=== PATIENT | male | born 1950 | race Caucasian/White ===

== ENCOUNTER 2017-02-04 16:00 | Outpatient (CLI) | payer OTHER ==
[2017-02-04 15:10] LABS: ALBUMIN/GLOBULIN RATIO 1.5 (1.0-2.2); BILIRUBIN,TOTAL 0.8 mg/dL (0.2-1.0); CALCIUM 9.3 mg/dL (8.5-10.3); CREATININE 1.1 mg/dL (0.6-1.2); POTASSIUM 3.8 mmol/L (3.5-5.0); TOTAL PROTEIN 7.4 g/dL (6.7-8.2)
== END 2017-02-04 23:59 | disposition home or self-care (01) ==
LOC: LAB 16:00
PROVIDERS: ATTEND Physician Assistant Medical
DX: Z51.81 Encounter for therapeutic drug level monitoring (principal)
CPT/HCPCS: 36415; 80053

== ENCOUNTER 2017-02-10 13:44 | Outpatient (CLI) | payer OTHER ==
[2017-02-10] MEDS ORDERED: GADOBUTROL 7.5 MMOL/7.5 ML VIAL IVP ONE (14:36)
--- NOTE | 2017-02-10 17:21 | MRI Report ---
MRI BRAIN WITHOUT AND WITH CONTRAST CLINICAL HISTORY: 66-year-old male with chronic headache. History of pituitary adenoma. COMPARISON: 10/13/2015. TECHNIQUE: Imaging of the brain and pituitary has been performed. The following sequences were obtained: 1. T1 sagittal and fat-saturated T2 coronal. 2. Axial T1 3-D MP RAGE, FLAIR, T2* and DWI. 3. Thin slice, T1 and T2 coronals (sella). 4. 7.5 mL IV Gadavist. Dynamic pituitary imaging was performed in the coronal plane. In addition, thi n slice static postcontrast sagittal and coronal T1 fat saturated sequences have been obtained throug h the pituitary and sella. A routine T1 3-D axial sequence was performed through the brain. FINDINGS: Pituitary/sella: The sella is not enlarged. A T1 hyperintense neurohypophysis is identified in the posterior aspect of the sella. The pituitary gland has a normal size and configuration. On postcontrast sequences, there is a tiny (roughly 1 mm diameter) focus of delayed or absent enhance ment in upper aspects of the adenohypophysis, just below the insertion of the infundibulum and slight ly to the right of midline (see image #6 of series 1201). This is unchanged. In addition, best demons trated on the sagittal postcontrast sequence (see image 6 of series 1301). There is a small focus of relative hypoenhancement in the inferior aspect of the adenohypophysis on the left, measuring roughly 1.8 mm in maximal height and roughly 1.2 mm in AP dimension, essentially unchanged. No other discret e intrapituitary lesion is demonstrated. The pituitary infundibulum remains midline. No suprasellar m ass lesion is demonstrated. The optic chiasm is normal and noncompressed. The cavernous sinuses and o ther parasellar structures appear normal. Brain: Ventricular size is normal. A tiny T2 hyperintensity is again demonstrated in white matter of the rig ht frontal lobe. Signal intensity of cortex and white matter is otherwise unremarkable. Flow voids are demonstrated in the main intracranial arteries. No abnormal diffusion restriction is d emonstrated. No evidence of acute or chronic hemorrhage on T2* GRE sequence. No enhancing intra- or e xtra-axial mass lesion is demonstrated on postcontrast sequences. Noted is normal intravascular contr ast enhancement in the dural venous sinuses and deep venous structures. Limited assessment of the orbits reveals no gross pathology. There is mild mucosal thickening scatter ed throughout the ethmoid air cells. The paranasal sinuses are otherwise essentially clear. No signif icant mastoid or middle ear effusion is demonstrated. IMPRESSION: 1. Two tiny foci of delayed or reduced enhancement are identified in the anterior lobe of the pituita ry gland as described. The findings are identical to previous study 10/13/2015. Either of these lesio ns could represent a microadenoma. No interval growth. 2. Otherwise, unremarkable MRI examination of the pituitary gland and parasellar region. 3. Unremarkable MRI examination of the brain. In particular, no evidence of infarction, hemorrhage, s pace-occupying mass lesion or other acute intracranial abnormality. Referring Provider Line: [phone] SITE ID: [id number]
== END 2017-02-10 23:59 | disposition home or self-care (01) ==
LOC: DI 13:44
PROVIDERS: ATTEND Physician Assistant Medical
DX: R51 Headache (principal); R90.89 Other abnormal findings on diagnostic imaging of central nervous system
CPT/HCPCS: 70553; A9585

== ENCOUNTER 2017-12-11 09:39 | Outpatient (CLI) | payer OTHER, MEDICARE | END 2017-12-11 09:40 | disposition home or self-care (01) | LOC: SC 09:39 | PROVIDERS: ATTEND Nurse Practitioner Family | DX: G47.33 Obstructive sleep apnea (adult) (pediatric) (principal) | CPT/HCPCS: 99212; 99214 ==

== ENCOUNTER 2018-04-09 14:00 | Outpatient (CLI) | payer OTHER, MEDICARE ==
[2018-04-09 19:56] LABS: H. PYLORIS ANTIGEN STL NEGATIVE (Negative)
== END 2018-04-09 14:01 | disposition home or self-care (01) ==
LOC: LAB.WCP 14:00
PROVIDERS: ATTEND Family Medicine
DX: K29.70 Gastritis, unspecified, without bleeding (principal); B96.81 Helicobacter pylori [H. pylori] as the cause of diseases classified elsewhere
CPT/HCPCS: 87338

== ENCOUNTER 2019-08-23 09:47 | Outpatient (CLI) | payer OTHER, MEDICARE ==
[2019-08-23 10:26] VITALS: BP 110/70
--- NOTE | 2019-08-23 10:26 | SLEEP CARE CONSULTATION ---
Information from patient questionnaire entered by Misty Koch. I have reviewed and concur with the information entered by Misty Koch. This document represents the service I personally performed and the decisions made by me, Tammie Davis, RN, MSN, [employer]. History of Present Illness Previous diagnosis: Very Severe, Obstructive Sleep Apnea-Hypopnea Syndrome AHI: 71 Reason for follow up: annual Equipment type: CPAP Equipment obtained from: [facility] (having difficulty getting supplies.) Mask style: Nasal pillows Backup mask available: No (Keep current mask as spare when replaced. ) Last cushion change: a month ago Prior sleep studies: Yes Year and Where: 2012 [facility] CPAP Compliance Data - Data Reviewed with Patient Average duration of nightly device use: 6h 35m Compliance rate %: 97.8 Current pressure setting (cmH2O): 7 Humidity settin Heated hose settin Average residual AHI: 2.6 Average large leak: 1s Subjective Patient concerns: reports: aerophagia (Feels bloated all time for past for the past month. no aerophagia symptoms. ), dry mouth, nose, throat (weekly mild dry throat for past 3-4 months ), other (reports short nights of sleep due to difficulty returning to sleep in middle of night. This has been occurring for about 3-4 months and 1-2 weeks a week. Patient unaware of cause. ). denies: mask discomfort, air blowing in eyes, mask leak noise, condensation in mask/hose, nasal congestion, epistaxis Observed to snore while using device: No Current pressure setting perceived as: comfortable On therapy, patient: reports: sleeping better, awakening more refreshed, being more awake and alert during the day, more rested overall. denies: drowsiness while driving Initial [place] Sleepiness Scale score: 10 Current [place] Sleepiness Scale score: 4 Allergies and Home Medications Known drug allergies: Yes Home medication list reviewed: Yes Allergy and home medication list: Medication Name (generic/name brand) Strength & Dosage Zetia 10mg daily Aspirin 81mg tab one daily Review of Systems Review of systems same as previous: Yes Physical Exam Blood Pressure: 110/70 Cuff size: regular Heart Rate: 73 O2 Saturation: 97 Height: 5 ft 6 in Weight: 156 lb 6.4 oz Body Mass Index: 25.2 BMI Classification: Overweight Impression and Plan 1. Obstructive Sleep Apnea-Hypopnea Syndrome, very severe, with good treatment compliance and good apnea control. On CPAP therapy, the patient has better sleep quality and is more rested overall. For his supply concerns, I will have my field marketing coordinator clarify if due to his insurance or need for updated prescription. Since his primary insurance is [employer], he may need to go to another DME. If so, a DWO prescription will be made. To reduce throat dryness, I showed him how to increase humidity with sample CPAP. Rationale discussed for future changing of both heated hose and humidity. Printed instruction sheet for CPAP site given. For his weekly insomnia for unknown reason, I will have him complete a 2 week sleep diary for further evaluation at follow up. Patient's apnea severity and rationale for treatment to reduce apnea, improve sleep quality and reduce cardiovascular and cerebrovascular events was reviewed. * Continue CPAP pressure at 7 cmH2O * Adjust humidity * complete sleep diary * Notify me if snoring with mask or feeling that the pressure is too much or too little * Check reason for inability to obtain supplies. * Return for follow up in 2 months , or sooner if concerns arise * * Addendum: at check out, it was discoverd that patient insurance is a PPO and patient can continue with current DME. A prescription to update supplies will be faxed to start process. I spent 100% of this 30 minute visit face to face with the patient with greater than 50% of this was spent time counseling the patient and coordination of care.
== END 2019-08-23 09:48 | disposition home or self-care (01) ==
LOC: SC 09:47
PROVIDERS: ATTEND Nurse Practitioner Family
DX: G47.33 Obstructive sleep apnea (adult) (pediatric) (principal)
CPT/HCPCS: 99212; 99214

== ENCOUNTER 2019-09-24 15:09 | Outpatient (CLI) | payer OTHER, MEDICARE ==
[2019-09-24] MEDS ORDERED: IOVERSOL 320 50 ML VIAL ONE (15:14)
[2019-09-24] MEDS ORDERED: IOVERSOL 320 100 ML VIAL IVP ONE ×2 (15:14→16:33)
[2019-09-24] MEDS ORDERED: IOVERSOL 320 50 ML VIAL PO ONE (16:33)
--- NOTE | 2019-09-25 15:29 | CT Report ---
Reason: ABD PAIN Procedure Date: 09/24/2019 Accession Number: [id number] / [id number] Procedure: CT - Abdomen/Pelvis W CPT Code: Final Report FULL RESULT: EXAM: CT ABDOMEN AND PELVIS EXAM DATE: 09/24/2019 04:31 PM. CLINICAL HISTORY: Abdominal pain. COMPARISONS: None. TECHNIQUE: Routine helical CT imaging was performed through the abdomen and pelvis. IV contrast: Optiray 320 100 mL. Enteric contrast: No. Reconstructions: Coronal and sagittal. In accordance with CT protocol optimization, one or more of the following dose reduction techniques were utilized for this exam: automated exposure control, adjustment of mA and/or KV based on patient size, or use of iterative reconstructive technique. FINDINGS: Lung Bases: Unremarkable. Liver: Normal. No masses. Gallbladder/Bile Ducts: Unremarkable. Spleen: Normal. Pancreas: Normal. Adrenal Glands: Normal. Kidneys: Normal. No masses or hydronephrosis. Peritoneal Cavity/Bowel: Normal. No free fluid, free air or adenopathy. No masses or acute inflammatory process. The appendix is well visualized and normal. Pelvic Organs: Normal. The bladder and visualized pelvic organs are within normal limits. Vasculature: No aneurysms or other significant abnormality. Bones: No significant abnormality. Other: None. IMPRESSION: Normal abdomen and pelvis CT. RADIA
== END 2019-09-24 15:10 | disposition home or self-care (01) ==
LOC: DI 15:09
PROVIDERS: ATTEND Family Medicine
DX: R10.9 Unspecified abdominal pain (principal)
CPT/HCPCS: 74177; Q9967

== ENCOUNTER 2019-10-25 15:09 | Outpatient (CLI) | payer OTHER, MEDICARE ==
[2019-10-25 16:14] VITALS: BP 112/64
--- NOTE | 2019-10-25 16:14 | SLEEP CARE CONSULTATION ---
Information from patient questionnaire entered by Misty Koch. I have reviewed and concur with the information entered by Misty Koch. This document represents the service I personally performed and the decisions made by me, Tammie Davis, RN, MSN, WOOL H[employer]. History of Present Illness Previous diagnosis: Very Severe, Obstructive Sleep Apnea-Hypopnea Syndrome AHI: 71.0 Reason for follow up: other (2 month with sleep diary) Equipment type: CPAP Equipment obtained from: [facility] (he continues to have difficulty getting supplies and now ready to transfer) Mask style: Nasal pillows Backup mask available: Yes (old mask ) Last cushion change: a couple of months ago Prior sleep studies: Yes HPI additional information: For his insomnia, he was to complete a sleep diary but forgot it at home. He feels his insomnia is less from 2 times a week to 1 time a week. His sleep schedule is bedtime 9:30-10pm - wake time about 4 am. He feels rested. He did not note any cause of wake up except bathroom use. He is now able to able to go back to sleep easier. He does not know why. CPAP Compliance Data - Data Reviewed with Patient Average duration of nightly device use: 6h 10m Compliance rate %: 63.3 Current pressure setting (cmH2O): 7 Humidity settin Heated hose settin Average residual AHI: 2 Average large leak: 2m 17s Subjective Missed days of use due to: reports: illness (had the flu and unable to use CPAP) Patient concerns: reports: dry mouth, nose, throat (occasional dry throat - none in past week ). denies: aerophagia (patient does not wake to bloating, he feels bloated all the time and has an appointment tomorrow with GI ), mask discomfort, air blowing in eyes, mask leak noise, condensation in mask/hose, nasal congestion, epistaxis Observed to snore while using device: No Current pressure setting perceived as: comfortable On therapy, patient: reports: sleeping better, awakening more refreshed, being more awake and alert during the day, more rested overall. denies: drowsiness while driving Initial [place] Sleepiness Scale score: 10 Current [place] Sleepiness Scale score: 9 Allergies and Home Medications Known drug allergies: Yes (see list ) Home medication list reviewed: Yes (added ) Allergy and home medication list: Sepia one tablet at night - replaces pravastatin prednisone short course 12 days of reducing dosage Review of Systems Review of systems same as previous: No (right sciatica - pain reduction with prednisone) Physical Exam Blood Pressure: 112/64 Cuff size: long Heart Rate: 84 O2 Saturation: 98 Height: 5 ft 6 in Weight: 158 lb 6.4 oz Weight change since last visit: gained 2 pounds Body Mass Index: 25.5 BMI Classification: Overweight Impression and Plan 1. Obstructive Sleep Apnea-Hypopnea Syndrome, very severe, with fair treatment compliance and good apnea control. Compliance fell while ill. He is now using CPAP well. On CPAP therapy, the patient has better sleep quality and is more rested overall. For occasional dry throat, he was advised to raise the humidity as instructed last visit. He can also reduce heated hose if no condensation. He reports that he generally does not like using CPAP but satisfied with benefit and plans on continuing use. For patient supply concerns. Patient was notified that another DME can be used. I will have my weatherization coordinator inform of DME options. A DWO prescription will then be made. Patient advised to contact this office if further supply problems. If insomnia gets worse, he is to contact this office for appointment and new sleep diaries. He is satisfied with reduced occurrence for now. Patient's apnea severity and rationale for treatment to re duce apnea, improve sleep quality and reduce cardiovascular and cerebrovascular events was reviewed. * Continue CPAP pressure at 7 cmH2O * Transfer to new DME * Adjust humidity * Notify me if snoring with mask or feeling that the pressure is too much or too little * Attempt to lose some some weight * Call this office if any problems using CPAP * Return for follow up in annual, or sooner if concerns arise Time Spent with Patient (minutes): 27 I spent 100% of this visit face to face with the patient with greater than 50% of this was spent time counseling the patient and coordination of care.
== END 2019-10-25 15:10 | disposition home or self-care (01) ==
LOC: SC 15:09
PROVIDERS: ATTEND Nurse Practitioner Family
DX: G47.33 Obstructive sleep apnea (adult) (pediatric) (principal)
CPT/HCPCS: 99212; 99214

== ENCOUNTER 2019-10-30 09:22 | Outpatient (CLI) | payer OTHER, MEDICARE ==
--- NOTE | 2019-10-31 09:10 | MRI Report ---
Reason: SCIATICA, RADICULOPATHY Procedure Date: 10/30/2019 Accession Number: [id number] / [id number] Procedure: MRI - Lumbar Spine W/O CPT Code: Final Report FULL RESULT: EXAM: MRI LUMBAR SPINE WITHOUT CONTRAST EXAM DATE: 10/30/2019 10:03 AM. CLINICAL HISTORY: SCIATICA, RADICULOPATHY. COMPARISON: LUMBAR SPINE COMPLETE 03/12/2013 1:42 PM. TECHNIQUE: Multiplanar, multisequence T1-weighted and fluid-sensitive sequences of the lumbar spine from T12 to S1 without contrast. Other: None. FINDINGS: Lumbar alignment is anatomic. Vertebral body height is preserved. Marrow signal is normal. No bony lesion. No fracture. The conus is normal in contour with the tip at the level of the L1 vertebra. Axial images demonstrate the following: L1-L2: Mild bilateral facet hypertrophy. Normal intervertebral disk. No central or foraminal stenosis. L2-L3: Mild bilateral facet hypertrophy. Trace disk bulge. No central or foraminal stenosis. L3-L4: Mild bilateral facet hypertrophy. Trace disk bulge. No central or foraminal stenosis. L4-L5: Mild bilateral facet hypertrophy. Mild loss of disk height with mild diffuse disk bulge/osteophyte. Findings lead to mild bilateral lateral recess stenosis with potential mild impingement on both L5 nerves and minimal right foraminal stenosis. No significant left foraminal stenosis. L5-S1: Mild bilateral facet hypertrophy. Normal intervertebral disk. No central or foraminal stenosis. IMPRESSION: 1. Mild diffuse lumbar degenerative facet arthropathy and mild lower lumbar degenerative disk disease. This is most pronounced at L4-L5 where the facet arthropathy and mild disk bulge/osteophyte lead to mild bilateral lateral recess stenosis and minimal right foraminal stenosis. No further central or foraminal stenosis at any other lumbar level. Comment: The following findings are so common in adults without low back pain that while we report their presence, they must be interpreted with caution and in the context of the clinical situation. (Reference Laura et al, Spine 2001) Prevalence of findings in patients without low back pain: Disk degeneration (any evidence): 92% Disk desiccation/T2 signal loss: 83% Disk height loss: 56% Disk bulge: 64% Disk protrusion: 32% Annular tear/high intensity zone: 38% RADIA
== END 2019-10-30 09:23 | disposition home or self-care (01) ==
LOC: DI 09:22
PROVIDERS: ATTEND Nurse Practitioner Family
DX: M47.816 Spondylosis without myelopathy or radiculopathy, lumbar region (principal); M51.36 Other intervertebral disc degeneration, lumbar region; M47.817 Spondylosis without myelopathy or radiculopathy, lumbosacral region; M48.061 Spinal stenosis, lumbar region without neurogenic claudication
CPT/HCPCS: 72148

== ENCOUNTER 2020-01-18 10:20 | Outpatient (CLI) | payer MEDICARE, OTHER ==
--- NOTE | 2020-01-18 11:33 | SLEEP CARE CONSULTATION ---
Information from patient questionnaire entered by Misty Koch. I have reviewed and concur with the information entered by Misty Koch. This document represents the service I personally performed and the decisions made by me, Cari Pedro MD, [facility]. History of Present Illness Service Date and Time: 01/18/2020 1020 Previous diagnosis: Very Severe, Obstructive Sleep Apnea-Hypopnea Syndrome AHI: 71.0 Reason for follow up: first compliance Equipment type: CPAP Equipment obtained from: [facility] additional information: consented to this telephone visit. The patient also agrees to having his insurance billed. HPI: Mr. Downing was called today to follow up on the nasal CPAP therapy. He was diagnosed to have very severe obstructive sleep apnea-hypopnea syndrome. The patient wears nasal pillows. He reports using the device nightly and all through the night. The compliance report shows usage in 30 nights out of the past 30 nights, averaging 6.5 hours a night. The > 4 hour compliance rate for the past 30 days is 100%. He complained of some confusion with him switching from [employer] to Medicare but no particular problem with the device such as soreness on the face, dry nose, epistaxis, nasal congestion or headache. He thinks that the pressure of 7 cmH2O is comfortable. On the CPAP therapy he notices improvement in his sleep quality, and that he wakes up feeling fresher in the morning and more awake/alert during the day. The average residual AHI is 1.8; and average time in large leak per day is 0 seconds. CPAP Compliance Data - Data Reviewed with Patient Average duration of nightly device use: 6H 30M Compliance rate %: 100 Current pressure setting (cmH2O): 7 Humidity settin Heated hose settin Average residual AHI: 1.8 Average large leak: 0S Subjective Initial [place] Sleepiness Scale score: 10 Allergies and Home Medications Drug allergies reviewed: Yes Home medication list reviewed: Yes Review of Systems Review of systems same as previous: Yes Physical Exam Height: 5 ft 6 in Impression and Plan IMPRESSION: 1. Obstructive Sleep Apnea-Hypopnea Syndrome, severe (AHI was 71), with the patient doing well on nasal CPAP therapy. He has excellent compliance and sign ificant clinical improvement. The current pressure appears effective and comfortable. His nasal pillows fit well. Overall, he is very satisfied with treatment and plans to continue with it long-term. No adjustment is necessary today. PLAN: 1. Continue with autoCPAP set at 7 cmH2O. 2. Consider switching durable medical supplier if he cannot resolve to payment issue with [employer]. 3. A prescription made for supplies in case he needs a new one for Medicare. 4. Return in one year for follow up or earlier if there is any problem with the treatment. Visit Type: Telehealth Phone Patient Location: Home Location of Provider: Home Patient agrees and consents to this telehealth visit type: Yes Patient agrees to have their insurance billed: Yes Time Spent with Patient (minutes): 10 Provider Statement: I spent 100% of the Telehealth Phone Call with the patient with greater than 50% spent counseling the patient and coordination of care.
== END 2020-01-18 10:21 | disposition home or self-care (01) ==
LOC: SC 10:20
PROVIDERS: ATTEND Internal Medicine Pulmonary Disease
DX: G47.33 Obstructive sleep apnea (adult) (pediatric) (principal)

== ENCOUNTER 2020-08-23 07:46 | Outpatient (CLI) | payer MEDICARE, OTHER ==
--- NOTE | 2020-08-23 08:42 | XRAY Report ---
PROCEDURE: Shoulder 2 View RT INDICATIONS: RIGHT SHOULDER PAIN TECHNIQUE: 2 views of the shoulder were acquired. COMPARISON: None. FINDINGS: Bones: No fractures or dislocations. Moderate acromioclavicular and glenohumeral joint space narrow ing with features of osteoarthritis. Suspicious bony lesions. Visualized ribs appear intact. Soft tissues: No suspicious soft tissue calcifications. IMPRESSION: Moderate glenohumeral and acromioclavicular osteoarthritis. Reviewed by: Isaiah Martinez MD on 08/23/2020 8:41 AM PST Approved by: Isaiah Martinez MD on 08/23/2020 8:41 AM PST Station ID: [id number]
== END 2020-08-23 23:59 | disposition home or self-care (01) ==
LOC: DI.WCP 07:46
PROVIDERS: ATTEND Family Medicine
DX: M19.011 Primary osteoarthritis, right shoulder (principal)

== ENCOUNTER 2021-01-05 08:11 | Outpatient (CLI) | payer MEDICARE, OTHER ==
--- NOTE | 2021-01-05 08:52 | SLEEP CARE CONSULTATION ---
Information from patient questionnaire entered by Mirian Navarro. I have reviewed and concur with the information entered by Mirian Navarro. This document represents the service I personally performed and the decisions made by , Mary Bearden ARNP. History of Present Illness Service Date and Time: 01/05/2021 0811 Previous diagnosis: Very Severe, Obstructive Sleep Apnea-Hypopnea Syndrome AHI: 71.0 (in 2012) Reason for follow up: annual (last seen 12/2019) Equipment type: CPAP Equipment obtained from: [facility] (getting supplies as needed) Mask style: Nasal pillows Backup mask available: No (will keep old mask when replaced) Last cushion change: 2 days ago Prior sleep studies: Yes Year and Where: 2012 - [facility] Type of Sleep Study: Polysomnography HPI additional information: CECILIA GUZMAN was diagnosed to have very severe, AHI 71.0, obstructive sleep apnea-hypopnea syndrome and returned today for CPAP therapy annual follow-up. CPAP Compliance Data - Data Reviewed with Patient Average duration of nightly device use: 5 hr 36 min Compliance rate %: 89.4 (180 days) Current pressure setting (cmH2O): 7 Humidity settin Heated hose settin Average residual AHI: 1.4 Average large leak: 4 sec Subjective Missed days of use due to: reports: illness Patient concerns: reports: mask discomfort (from turning on side), air blowing in eyes (from turning on side), mask leak noise (from turning on side), nasal congestion (little next morning), dry mouth, nose, throat (mouth and throat). denies: condensation in mask/hose Observed to snore while using device: No Current pressure setting perceived as: comfortable On therapy, patient: reports: sleeping better, awakening more refreshed, being more awake and alert during the day, more rested overall. denies: drowsiness while driving Initial [place] Sleepiness Scale score: 10 (in 2013) Current [place] Sleepiness Scale score: 13 Allergies and Home Medications Home medication list reviewed: Yes (Zepia for cholesterol) Review of Systems Review of systems same as previous: Yes (no changes) Physical Exam Heart Rate: 74 O2 Saturation: 97 Height: 5 ft 6 in Weight: 159 lb Body Mass Index: 25.7 BMI Classification: Overweight Impression and Plan 1. Obstructive Sleep Apnea-Hypopnea Syndrome, very severe, with good treatment compliance and good apnea control. On CPAP therapy, the patient has better sleep quality and is more rested overall. He has some nasal congestion in the morning and feels like his mouth and throat are dry. Oral dryness can be reduced by adjusting humidity setting higher or heated hose lower or by adjusting both settings. Verbal instructions given on how to change humidity and heated hose settings with rationale explaining why to change. He gets mask leaks and air in eyes when turning on his side. Mask leaks predominately from when patient sleeps on their side can be reduced by using a CPAP pillow. A CPAP pillow sample was shown. This and other styles can be purchased online. Patient's apnea severity and rationale for treatment to reduce apnea, improve sleep quality and reduce cardiovascular and cerebrovascular events was reviewed. Patient requesting a letter stating he probably had sleep apnea last 5 years while in service, even though he did not get evaluated at that time (for disability). I advised him that I will have to check and discuss with senior medical billing specialist to see if we can help him with this concern. We will get back with him once it is determined what can be done. Patient voiced understanding. * Continue autoCPAP pressure at 7 cmH2O * Notify me if snoring with mask or feeling that the pressure is too much or too little * Attempt to lose weight * Call this office if any problems using CPAP * Return for follow up in 1 year, or sooner if concerns arise Counseling Topics: Spare mask, Weight loss health impact Visit Type: In Office Time Spent with Patient (minutes): 20 Provider Statement: I spent 100% of the Face to Face Visit with the patient with greater than 50% spent counseling the patient and coordination of care.
== END 2021-01-05 08:12 | disposition home or self-care (01) ==
LOC: SC 08:11
PROVIDERS: ATTEND Nurse Practitioner Family
DX: G47.33 Obstructive sleep apnea (adult) (pediatric) (principal); E66.3 Overweight; Z68.25 Body mass index [BMI] 25.0-25.9, adult
CPT/HCPCS: 99213; G0463; 99212

== ENCOUNTER 2021-11-24 09:02 | Outpatient (CLI) | payer MEDICARE, OTHER ==
[2021-11-24 14:23] LABS: ALBUMIN 4.5 g/dL (3.2-5.5); ALBUMIN/GLOBULIN RATIO 1.4 (1.0-2.2); ALKALINE PHOSPHATASE 69 IU/L (42-121); ALT ALANINE AMINOTRANSFERASE 44 IU/L (10-60); AST ASPARTATE AMINOTRANSFERASE 27 IU/L (10-42); BILIRUBIN,TOTAL 1.5 mg/dL (0.2-1.0); BUN - BLOOD UREA NITROGEN 23 mg/dL (6-20); CALCIUM 9.6 mg/dL (8.5-10.3); CARBON DIOXIDE - CO2 28 mmol/L (21-32); CHLORIDE 102 mmol/L (101-111); CHOL/HDL RATIO 4.5 (<5.0); CHOLESTEROL 246 mg/dL; GFR - MDRD 74 (>89); GLUCOSE 96 mg/dL (70-100); HDL CHOLESTEROL 55 mg/dL; LDL CHOLESTEROL,CALCULATED 152 mg/dL; LDL/HDL RATIO 2.8 (<3.6); POTASSIUM 4.1 mmol/L (3.5-5.0); SODIUM 139 mmol/L (135-145); TOTAL PROTEIN 7.7 g/dL (6.7-8.2); TRIGLYCERIDES 193 mg/dL; VLDL CHOLESTEROL 39 mg/dL
== END 2021-11-24 09:03 | disposition home or self-care (01) ==
LOC: LAB.N 09:02
PROVIDERS: ATTEND Family Medicine
DX: E78.5 Hyperlipidemia, unspecified (principal)
CPT/HCPCS: 36415; 80053; 80061; 83721

== ENCOUNTER 2021-12-14 06:53 | Outpatient (CLI) | payer MEDICARE, OTHER ==
--- NOTE | 2021-12-14 10:52 | Ultrasound Report ---
PROCEDURE: Abdomen Complete INDICATIONS: HYPERBILIRUBINEMIA, ABD BLOATING TECHNIQUE: Real-time scanning was performed of the abdominal and retroperitoneal organs, with image documentatio n. COMPARISON: Reference is made to CT abdomen dated September 24, 2019 TECHNIQUE: Sonographic evaluation of the abdomen was performed. FINDINGS: AORTA: The visualized abdominal aorta is normal. IVC: The visualized IVC is normal. LIVER: The liver is normal in size and contour. Hypoechoic lesion in the left hepatic lobe, measur ing up to 12 mm, most consistent with a cyst. Increased echogenicity, suggesting hepatic steatosis. T he portal vein is patent. PANCREAS: The visualized portions of the pancreas are normal. Gallbladder and biliary tree: No gallbladder wall thickening or pericholecystic fluid. 8.6 mm shado wing gallstone is seen in the neck, which is mobile. Foci ringdown artifact, compatible with adenomyo matosis. RIGHT KIDNEY: Normal in appearance with no hydronephrosis. Measuring 11.5 cm in length. The renal c ortex thickness measures 1.5 cm. LEFT KIDNEY: Normal in appearance with no hydronephrosis. Measuring 11.2 cm in length. The renal co rtex thickness measures 1.7 cm. Spleen: Normal contour, measuring 8.7 cm. No evidence for ascites. IMPRESSION: 1.No significant abnormality. 2.Cholelithiasis with adenomyomatosis. Reviewed by: Nadeem Foster MD on 12/14/2021 10:50 AM PDT Approved by: Nadeem Foster MD on 12/14/2021 10:50 AM PDT Station ID: [id number]
== END 2021-12-14 06:54 | disposition home or self-care (01) ==
LOC: DI 06:53
PROVIDERS: ATTEND Family Medicine
DX: E80.6 Other disorders of bilirubin metabolism (principal); R14.0 Abdominal distension (gaseous)

== ENCOUNTER 2023-01-01 08:23 | Outpatient (CLI) | payer MEDICARE, OTHER ==
[2023-01-01 09:05] VITALS: BP 110/76
--- NOTE | 2023-01-01 09:05 | SLEEP CARE CONSULTATION ---
Information from patient questionnaire entered by Maddison Hutchison. I have reviewed and concur with the information entered by Maddison Hutchison. This document represents the service I personally performed and the decisions made by me, Mary Bearden ARNP. History of Present Illness Service Date and Time: 01/01/2023 08 Previous diagnosis: Very Severe, Obstructive Sleep Apnea-Hypopnea Syndrome AHI: 71.0 (in 2012) Reason for follow up: annual (LAST SEEN 12/2020) Equipment type: CPAP (CHILD Dreamstation, recertified; NEED SD CARD FOR DOWNLOAD AND RESSURE CHANGES) Equipment obtained from: [employer] (getting supplies as needed) Mask style: Nasal pillows Mask brand: Respironics (Dreamwear) Backup mask available: Yes (old mask) Last cushion change: 1 month [facility]: Yes [facility] Type of Sleep Study: Polysomnography HPI additional information: CECILIA GUZMAN was diagnosed to have very severe, AHI 71.0, obstructive sleep apnea-hypopnea syndrome and returned today for CPAP therapy annual follow-up. Sleep Study - Results Type of Sleep Study: Polysomnography Prior sleep studies: Yes Year and Where: 2012 - [facility] CPAP Compliance Data - Data Reviewed with Patient Average duration of nightly device use: 0 Compliance rate %: 0 (not using due to recall) Current pressure setting (cmH2O): 7 Compliance data discussion: He has a Dreamstation that was just received about a month ago from [employer]. He has not been using his CPAP since 2020 because of the recall on that device. He felt the pressure was not right on his new device. Subjective Missed days of use due to: reports: other (recall) Patient concerns: reports: mask discomfort, other (air flow noise of machine). denies: aerophagia, air blowing in eyes, mask leak noise, condensation in mask/hose, nasal congestion, dry mouth, nose, throat, epistaxis Observed to snore while using device: No Current pressure setting perceived as: too low (on new device) On therapy, patient: reports: sleeping better, awakening more refreshed, being more awake and alert during the day, more rested overall. denies: drowsiness while driving Initial [place] Sleepiness Scale score: 10 (in 2012) Current [place] Sleepiness Scale score: 10 (01/01/23) Allergies and Home Medications Known drug allergies: Yes (as listed) Drug allergies reviewed: Yes Home medication list reviewed: Yes (Zetia, Repatha, for cholesterol) Allergy and home medication list: Allergies atorvastatin calcium * [From Lipitor] Allergy (Verified 12/31/22 09:49) Dizziness choline fenofibrate * [From Trilipix] Adverse Reaction (Verified 12/31/22 09:49) Rash Review of Systems Review of systems same as previous: Yes (no changes) Physical Exam Vital signs obtained and entered by: MADDISON Cline MA Blood Pressure: 110/76 (LEFT ARM) Cuff size: regular Heart Rate: 75 O2 Saturation: 96 Height: 5 ft 6 in Weight: 160 lb 3.2 oz Body Mass Index: 25.8 BMI Classification: Overweight Impression and Plan 1. Obstructive Sleep Apnea-Hypopnea Syndrome, very severe, with poor treatment compliance because of recall on his device and good apnea control when he used his CPAP. Patient received a replacement for his old DreamStation. It is a DreamStation. He states he tried it but the pressure was too low. I reviewed the settings on his machine and it has not updated to his last known pressure setting. I adjusted it to reflect the pressure he used to use with good control of his AHI at 7 cmH2O. I also adjusted the ramp starting pressure to 5 cmH2O as he used to have on his last device. I will have him follow-up with us in about 1 to 2 months to recheck compliance and use of his device. Patient's apnea severity and rationale for treatment to reduce apnea, improve sleep quality and reduce cardiovascular and cerebrovascular events was reviewed. 2. Overweight, unspecified. Currently patients BMI is 25.8. Obesity increases the risk of apnea, CPAP pressure requirements and overall health risks especially cardiovascular and diabetes. Thus, patient is advised to lose weight. * Continue CPAP pressure at 7 cmH2O * Update supplies * Notify me if snoring with mask or feeling that the pressure is too much or too little * Attempt to lose weight * Call this office if any problems using CPAP * Return for follow up in 1-2 months, or sooner if concerns arise Counseling Topics: Spare mask, Weight loss health impact Visit Type: In Office Time Spent with Patient (minutes): 21 Provider Statement: I spent 100% of the Face to Face Visit with the patient with greater than 50% spent counseling the patient and coordination of care.
== END 2023-01-01 08:24 | disposition home or self-care (01) ==
LOC: SC 08:23
PROVIDERS: ATTEND Nurse Practitioner Family
DX: G47.33 Obstructive sleep apnea (adult) (pediatric) (principal); E66.3 Overweight; Z68.25 Body mass index [BMI] 25.0-25.9, adult
CPT/HCPCS: 99213; G0463; 99212

== ENCOUNTER 2023-02-25 08:19 | Outpatient (CLI) | payer MEDICARE, OTHER ==
--- NOTE | 2023-02-25 08:47 | Sleep Patient Instructions ---
Sleep Center Visit Summary - Patient Visit Information Reason for Visit: Two month followup for CPAP therapy - Patient Instructions Additional Instructions: You were here for follow up of CPAP therapy. You will be continued on CPAP therapy with pressure at 7 cmH2O. You asked for a transfer to another CPAP supplier. A prescription will be sent to your choice and they should be reaching out to you. You should follow up with sleep care in 12 months. You may contact us sooner for any questions or concerns. - Clinic Information Contact: [facility] [address] [place] [address] [email or web address] T: [phone]
--- NOTE | 2023-02-25 09:03 | SLEEP CARE CONSULTATION ---
Information from patient questionnaire entered by Andra Hutchison. I have reviewed and concur with the information entered by Andra Hutchison. This document represents the service I personally performed and the decisions made by , Mary Bearden ARNP. History of Present Illness Service Date and Time: 02/25/2023818 Previous diagnosis: Very Severe, Obstructive Sleep Apnea-Hypopnea Syndrome AHI: 71.0 (in 2012) Reason for follow up: other (2 MONTH F/U) Equipment type: CPAP (CHILD Dreamstation, recertified; NEED SD CARD FOR DOWNLOAD AND RESSURE CHANGES) Equipment obtained from: [employer] (getting supplies as needed) Mask style: Nasal pillows Backup mask available: No (will keep old mask when replaced) Last cushion change: 3 weeks [facility]: [facility] Type of Sleep Study: Pol[facility]omnography HPI additional information: KEVIN GUZMAN was diagnosed to have very severe, AHI 71, obstructive sleep apnea-hypopnea syndrome and returned today for CPAP therapy two month follow-up. Sleep Study - Results Type of Sleep Study: Polysomnography Prior sleep [facility]: Yes [facility] Compliance Data - Data Reviewed with Patient Average duration of nightly device use: 5 hours 10 minutes Compliance rate %: 80 (54/60 days used) Current pressure setting (cmH2O): 7 Average residual AHI: 1.9 Average large leak: 0 secs Subjective Patient concerns: reports: mask leak noise. denies: aerophagia, mask discomfort, air blowing in eyes, condensation in mask/hose, nasal congestion, dry mouth, nose, throat, epistaxis Observed to snore while using device: No Current pressure setting perceived as: comfortable On therapy, patient: reports: sleeping better, awakening more refreshed, being more awake and alert during the day, more rested overall Initial [place] Sleepiness Scale score: 10 (in 2012) Current [place] Sleepiness Scale score: 8 (02/25/23) Allergies and Home Medications Known drug allergies: Yes (as listed) Drug allergies reviewed: Yes Home medication list reviewed: Yes (no changes) Allergy and home medication list: Allergies atorvastatin calcium * [From Lipitor] Allergy (Verified 02/24/23 09:20) Dizziness choline fenofibrate * [From Trilipix] Adverse Reaction (Verified 02/24/23 09:20) Rash Review of Systems Review of systems same as previous: Yes (no changes) Physical Exam Vital signs obtained and entered by: ANDRA Cline MA Blood Pressure: 102/68 (LEFT ARM) Cuff size: regular Heart Rate: 81 O2 Saturation: 98 Height: 5 ft 6 in Weight: 160 lb 9.6 oz Body Mass Index: 25.9 BMI Classification: Overweight Impression and Plan 1. Obstructive Sleep Apnea-Hypopnea Syndrome, very severe, with good treatment compliance and good apnea control. On CPAP therapy, the patient has better sleep quality and is more rested overall. Kevin has been using [employer] for his supplies but states it is cumbersome to work with them. He would like to change his DME that he might be easier for him to work with. I will have my computer security coordinator inform of DME options. A DWO prescription will then be made. Patient advised to contact this office if further supply problems. Patient's apnea severity and rationale for treatment to reduce apnea, improve sleep quality and reduce cardiovascular and cerebrovascular events was reviewed. Patient requests a letter for the to document possibility sleep apnea prior to his discharge from the service back in 1997. He was originally seen in our office in November 2012 and it was documented by Dr. Pedro that his had told him about his snoring and pauses in breathing 2 years prior to this initial visit. I will draft a letter for him as he requested with this information. 2. Overweight, unspecified. Currently patients BMI is 25.9. Obesity increases the risk of apnea, CPAP pressure requirements and overall health risks especially cardiovascular and diabetes. Thus patient is advised to lose weight. * Continue CPAP pressure at 7 cmH2O * Transfer DME * Notify me if snoring with mask or feeling that the pressure is too much or too little * Attempt to lose weight * Call this office if any problems using CPAP * Return for follow up in 1 year, or sooner if concerns arise Counseling Topics: Spare mask, Weight loss health impact Visit Type: In Office Time Spent with Patient (minutes): 23 Provider Statement: I spent 100% of the Face to Face Visit with the patient with greater than 50% spent counseling the patient and coordination of care.
[2023-02-25 09:06] VITALS: BP 102/68
== END 2023-02-25 08:20 | disposition home or self-care (01) ==
LOC: SC 08:19
PROVIDERS: ATTEND Nurse Practitioner Family
DX: G47.33 Obstructive sleep apnea (adult) (pediatric) (principal); E66.3 Overweight; Z68.25 Body mass index [BMI] 25.0-25.9, adult
CPT/HCPCS: 99213; G0463; 99212

== ENCOUNTER 2024-03-12 14:44 | Outpatient (CLI) | payer MEDICARE, OTHER ==
--- NOTE | 2024-03-12 15:10 | Sleep Patient Instructions ---
Sleep Center Visit Summary - Patient Visit Information Reason for Visit: Annual follow-up - Patient Instructions Additional Instructions: You will continue with CPAP therapy with pressure set at 7 cmH2O. A supply prescription will be updated with your DME. I have added a mask refitting for the nasal pillows mask. Please follow up with the sleep care office in 1 year. - Clinic Information Contact: [facility] [address] [place] [address] [email or web address] T: [phone]
--- NOTE | 2024-03-12 15:13 | SLEEP CARE CONSULTATION ---
Information from patient questionnaire entered by Maddison Hutchison. I have reviewed and concur with the information entered by Maddison Hutchison. This document represents the service I personally performed and the decisions made by me, Mary Bearden ARNP. History of Present Illness Service Date and Time: 03/12/2024 1444 Previous diagnosis: Very Severe, Obstructive Sleep Apnea-Hypopnea Syndrome AHI: 71.0 (in 2012) Reason for follow up: annual (LAST SEEN 02/2023) Equipment type: CPAP (CHILD Dreamstation, recertified; NEED SD CARD FOR DOWNLOAD AND RESSURE CHANGES) Equipment obtained from: Other ([facility]; getting supplies as needed) Mask style: Nasal pillows Mask brand: Resmed (AirFit [id number]) Backup mask available: Yes Last cushion change: couple weeks Prior sleep studies: Yes Year and Where: 2012 - [facility] Type of Sleep Study: Polysomnography HPI additional information: CECILIA GUZMAN was diagnosed to have very severe, AHI 71, obstructive sleep apnea-hypopnea syndrome and returned today for CPAP therapy annual follow-up. Sleep Study - Results Type of Sleep Study: Polysomnography Prior [facility]: Yes [facility] Compliance Data - Data Reviewed with Patient Average duration of nightly device use: 6 hours 19 minutes Compliance rate %: 64.1 (247/365 days used) Current pressure setting (cmH2O): 7 Average residual AHI: 1.1 Central apnea: 0 Obstructive apnea: 0.1 Hypopnea: 1 Average large leak: 26 secs Subjective Missed days of use due to: reports: travel (no way to plug in) Patient concerns: reports: mask discomfort, mask leak noise. denies: aerophagia, air blowing in eyes, condensation in mask/hose, nasal congestion, dry mouth, nose, throat, epistaxis Observed to snore while using device: No Current pressure setting perceived as: comfortable On therapy, patient: reports: sleeping better, awakening more refreshed, being more awake and alert during the day, more rested overall. denies: drowsiness while driving Initial [place] Sleepiness Scale score: 10 (in 2012) Current [place] Sleepiness Scale score: 10 (03/12/24) Allergies and Home Medications Known drug allergies: Yes (as listed) Drug allergies reviewed: Yes Home medication list reviewed: Yes (no changes) Allergy and home medication list: Allergies atorvastatin calcium * [From Lipitor] Allergy (Verified 03/10/24 11:25) Dizziness choline fenofibrate * [From Trilipix] Adverse Reaction (Verified 03/10/24 11:25) Rash Review of Systems Review of systems same as previous: Yes (NO CHANGE) Physical Exam Vital signs obtained and entered by: MADDISON Cline MA Blood Pressure: 127/56 (LEFT ARM) Cuff size: regular Heart Rate: 89 O2 Saturation: 96 Height: 5 ft 6 in Weight: 159 lb 9.6 oz Body Mass Index: 25.7 BMI Classification: Overweight Impression and Plan 1. Obstructive Sleep Apnea-Hypopnea Syndrome, very severe, with fair treatment compliance and good apnea control. On CPAP therapy, the patient has better sleep quality and is more rested overall. He has significant improvement of his sleep apnea and is satisfied with current CPAP therapy. He is using a nasal pillows mask but his new DME sent him a different one and he thinks it is noisier. He would like to try a different style of nasal pillows mask, so I will write for a mask refitting. Patient's apnea severity and rationale for treatment to reduce apnea, improve sleep quality and reduce cardiovascular and cerebrovascular events was reviewed. 2. Overweight, minimal. Currently patients BMI is 25.7. Obesity increases the risk of apnea, CPAP pressure requirements and overall health risks especially cardiovascular and diabetes. Thus patient is advised to maintain a healthy weight. * Continue CPAP pressure at 7 cmH2O * Mask refitting for nasal pillows mask * Update supply prescription * Notify me if snoring with mask or feeling that the pressure is too much or too little * Call this office if any problems using CPAP * Return for follow up in 12 months, or sooner if concerns arise Counseling Topics: Spare mask Prescriptions: Device supplies (mask refitting for nasal pillows mask) Follow up with Sleep Care in: 1 year Visit Type: In Office Time Spent with Patient (minutes): 20 Provider Statement: I spent 100% of the Face to Face Visit with the patient with greater than 50% spent counseling the patient and coordination of care.
[2024-03-12 15:14] VITALS: BP 127/56; O2SAT 96
== END 2024-03-12 14:45 | disposition home or self-care (01) ==
LOC: SC 14:44
PROVIDERS: ATTEND Nurse Practitioner Family
DX: G47.33 Obstructive sleep apnea (adult) (pediatric) (principal); E66.3 Overweight; Z68.25 Body mass index [BMI] 25.0-25.9, adult
CPT/HCPCS: 99213; G0463; 99212